=== PATIENT | female | born 1975 | race Caucasian/White ===

== ENCOUNTER → 2019-01-23 11:06 | Outpatient (CLI) | payer MEDICAID, SELFPAY ==
[2019-01-24 14:51] LABS: Amphetamine/Metha Screen,Urine Negative ng/mL (<1000); Barbiturates Screen,Urine Negative ng/mL (<200); Benzodiazepines Screen,Urine Negative ng/mL (<200); Cannabinoid Screen,Urine Positive ng/mL (<50); Cocaine Screen,Urine Negative ng/mL (<300); Methadone Screen,Urine Negative ng/mL (<300); Opiate Screen,Urine Negative ng/mL (<300); Phencyclidine Screen,Urine Negative ng/mL (<25)
[2019-01-31 15:11] LABS: Alprazolam Negative (Cutoff=100); Benzodiazepines Negative ng/mL (Cutoff=100); Clonazepam Negative (Cutoff=100); Flurazepam Negative (Cutoff=100); Lorazepam Negative (Cutoff=100); Midazolam Negative (Cutoff=100); Temazepam Negative (Cutoff=100); Triazolam Negative (Cutoff=100)
== END ==
PROVIDERS: Visit Provider Emergency Medicine
DX: Z79.899 Other long term (current) drug therapy (principal); F41.9 Anxiety disorder, unspecified
CPT/HCPCS: 80305; 80346

== ENCOUNTER → 2019-09-13 14:36 | Outpatient (CLI) | payer MEDICAID, SELFPAY ==
[2019-09-13 15:51] LABS: Amphetamine/Metha Screen,Urine Negative ng/ml (<1000)
[2019-09-13 15:52] LABS: Barbiturates Screen,Urine Negative ng/ml (<200); Benzodiazepines Screen,Urine Negative ng/ml (<200)
[2019-09-13 15:53] LABS: Cannabinoid Screen,Urine Negative ng/ml (<50)
[2019-09-13 15:54] LABS: Cocaine Screen,Urine Negative ng/ml (<300); Methadone Screen,Urine Negative ng/ml (<300)
[2019-09-13 15:55] LABS: Opiate Screen,Urine Negative ng/ml (<300); Phencyclidine Screen,Urine Negative ng/ml (<25)
[2019-09-21 10:28] LABS: Alprazolam Negative (Cutoff=100); Benzodiazepines Negative ng/mL (Cutoff=100); Clonazepam Negative (Cutoff=100); Flurazepam Negative (Cutoff=100); Lorazepam Negative (Cutoff=100); Midazolam Negative (Cutoff=100); Temazepam Negative (Cutoff=100); Triazolam Negative (Cutoff=100)
[2019-09-21 12:34] LABS: Opiates Negative (Cutoff=100)
== END ==
PROVIDERS: Visit Provider Emergency Medicine
DX: Z79.899 Other long term (current) drug therapy (principal)
CPT/HCPCS: 80305; 80346; 80361; 80365; G0480

== ENCOUNTER → 2020-01-03 16:49 | Outpatient (CLI) | payer MEDICAID, SELFPAY ==
[2020-01-03 17:46] LABS: Chloride 105 mmol/L (98-107)
[2020-01-03 17:47] LABS: Potassium 4.5 mmoL/L (3.5-5.1); Sodium 137 mmol/L (136-145)
[2020-01-03 17:49] LABS: Alanine Aminotransferase 14 U/L (12-78); Albumin Level 4.2 g/dl (3.5-5.0); Albumin/Globulin Ratio 1.4 (1.1-1.8); Alkaline Phosphatase 49 U/L (38-126); Anion Gap 10.5 mEq/L (5-15); Aspartate Amino Transferase 22 U/L (14-36); Bilirubin,Total 0.4 mg/dl (0.2-1.3); Blood Urea Nitrogen 12 mg/dl (7-17); Carbon Dioxide 26 mmol/L (22.0-30.0); Cholesterol 148 mg/dl (140-200); Estimated Glomerular Filt Rate 109 ml/min (>60); GFR (African American) 132 ML/MIN (>60); Globulin 2.9 g/dL (1.3-3.2); Total Protein,Serum 7.1 g/dl (6.3-8.2); Triglycerides 154 mg/dl (30-150); VLDL Cholesterol 31 mg/dL (0-40)
[2020-01-03 17:50] LABS: Calcium 9.3 mg/dl (8.4-10.2); Chol/HDL Ratio 2.7 (1-3.5); Glucose 109 mg/dl (74-100); HDL Cholesterol 55 mg/dl (40-60)
[2020-01-03 17:51] LABS: Basophils % 0.4 % (0.1-2.0); Eosinophils # 0.7 K/mm3 (0.0-0.4); Eosinophils % 7.8 % (0.1-12.0); Hematocrit 44.8 % (37.0-47.0); Hemoglobin 14.7 g/dL (12.2-16.2); Lymphocytes # 2.9 K/mm3 (0.7-4.5); Lymphocytes % 31.8 % (10-50); Mean Corpuscular HGB Conc 32.9 g/dL (31.8-35.4); Mean Corpuscular Hemoglobin 32.7 pg (27.0-31.2); Mean Corpuscular Volume 99.3 fl (81-99); Mean Platelet Volume 10.3 fl (7.4-10.4); Monocytes # 0.3 K/mm3 (0.1-1.0); Monocytes % 3.5 % (1.7-9.3); Neutrophils # 5.1 K/mm3 (1.8-7.8); Neutrophils % 56.5 % (37.0-80.0); Platelet Count 265 K/mm3 (142-424); Red Blood Count 4.52 M/mm3 (4.20-5.40); Red Cell Distribution Width 14.4 % (11.5-17.5)
[2020-01-03 18:02] LABS: Direct LDL Cholesterol 57.83 mg/dL (100-129)
[2020-01-03 18:20] LABS: Thyroid Stimulating Hormone 1.07 uIU/mL (0.465-4.68)
[2020-01-05 11:18] LABS: Vitamin D 25 Hydroxy 37.7 ng/mL (30.0-100.0)
== END ==
PROVIDERS: Visit Provider Emergency Medicine
DX: M51.36 Other intervertebral disc degeneration, lumbar region (principal); Z79.899 Other long term (current) drug therapy
CPT/HCPCS: 80053; 80061; 82652; 84436; 84443; 85025

== ENCOUNTER → 2020-04-03 15:00 | Outpatient (CLI) | payer MEDICAID, SELFPAY ==
--- NOTE | 2020-04-03 15:01 | MR_ITS ---
PROCEDURE: MR LUMBAR SPINE WO CON CLINICAL INDICATION: back pain PT. C/O LEFT LEG PAIN NUMBNESS AND TINGLING X 4 MONTHS. 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 3-D MIP and myelographic images are also rendered and reviewed FINDINGS: The spinal cord ends at the L1 level. L1-L2 and L2-L3 have an unremarkable appearance. L3-L4: Degenerate disc disease with 7 mm anterolisthesis of L3. Bilateral pars defect is present at L3. There is decreased T1 and increased T2 signal involving the mid lower aspect of L3 vertebral body in the mid upper aspect of the L4 vertebral body centrally and on the left. Bulging disc is present at L3-L4 is slightly eccentric toward the left. There is severe left-sided foraminal narrowing which is increased compared to the previous exam and mild right foraminal narrowing. There is impingement upon the exiting L3 nerve root from the severe foraminal narrowing L4-5: Degenerative disc disease with bulging disc with moderate to severe right foraminal narrowing and mild left foraminal narrowing. The disc is eccentric toward the right and there is facet and ligamentum hypertrophy. L5-S1: Mild concentric bulging disc. No extruded herniated disc or bony canal stenosis. IMPRESSION: 1. Degenerative disc disease at L3-L4 with 7 mm anterolisthesis of L3. Bilateral pars defect is present at L3. There is bone marrow edema involving the mid lower aspect of L3 in the mid upper aspect of L4 centrally and on the left. This has developed since the previous exam. Bulging disc is present at L3-L4 is slightly eccentric toward the left. There is severe left-sided foraminal narrowing which is increased compared to the previous exam and mild right foraminal narrowing. There is impingement upon the exiting L3 nerve root from the severe foraminal narrowing on the left. This has increased since the previous exam 2. L4-5: Degenerative disc disease with bulging disc with moderate to severe right foraminal narrowing and mild left foraminal narrowing. The disc is eccentric toward the right and there is facet and ligamentum hypertrophy. Item no extruded herniated disc evident. Dictated by: Jean Pierre Duarte MD 04/04/2020 14:12 Jean Pierre Duaret MD in [facility] 04/04/2020 14:12
== END ==
PROVIDERS: PCP Emergency Medicine; Visit Provider Emergency Medicine
DX: M51.36 Other intervertebral disc degeneration, lumbar region (principal)
CPT/HCPCS: 72148; 76376

== ENCOUNTER → 2020-09-20 15:27 | Outpatient (CLI) | payer MEDICAID, SELFPAY ==
[2020-09-20 18:44] LABS: Barbiturates Screen,Urine Negative ng/ml (<200)
[2020-09-20 18:45] LABS: Amphetamine/Metha Screen,Urine Negative ng/ml (<1000); Benzodiazepines Screen,Urine Negative ng/ml (<200)
[2020-09-20 18:46] LABS: Methadone Screen,Urine Negative ng/ml (<300)
[2020-09-20 18:47] LABS: Cannabinoid Screen,Urine Positive ng/ml (<50); Cocaine Screen,Urine Negative ng/ml (<300)
[2020-09-20 18:48] LABS: Opiate Screen,Urine Negative ng/ml (<300)
[2020-09-20 18:49] LABS: Phencyclidine Screen,Urine Negative ng/ml (<25)
== END ==
PROVIDERS: Visit Provider Emergency Medicine
DX: Z79.899 Other long term (current) drug therapy (principal)
CPT/HCPCS: 80305

== ENCOUNTER → 2020-10-25 13:59 | Outpatient (CLI) | payer MEDICAID, SELFPAY ==
[2020-10-25 14:51] LABS: Barbiturates Screen,Urine Negative ng/ml (<200)
[2020-10-25 14:52] LABS: Amphetamine/Metha Screen,Urine Negative ng/ml (<1000); Benzodiazepines Screen,Urine Negative ng/ml (<200)
[2020-10-25 14:53] LABS: Methadone Screen,Urine Negative ng/ml (<300)
[2020-10-25 14:54] LABS: Cannabinoid Screen,Urine Positive ng/ml (<50); Cocaine Screen,Urine Negative ng/ml (<300)
[2020-10-25 14:55] LABS: Opiate Screen,Urine Negative ng/ml (<300)
[2020-10-25 14:56] LABS: Phencyclidine Screen,Urine Negative ng/ml (<25)
== END ==
PROVIDERS: Visit Provider Emergency Medicine
DX: M51.36 Other intervertebral disc degeneration, lumbar region (principal)
CPT/HCPCS: 80305

== ENCOUNTER → 2020-12-25 14:54 | Outpatient (CLI) | payer MEDICAID, SELFPAY ==
[2020-12-25 16:54] LABS: Amphetamine/Metha Screen,Urine Negative ng/ml (<1000); Barbiturates Screen,Urine Negative ng/ml (<200); Benzodiazepines Screen,Urine Negative ng/ml (<200); Cannabinoid Screen,Urine Positive ng/ml (<50); Cocaine Screen,Urine Negative ng/ml (<300); Methadone Screen,Urine Negative ng/ml (<300); Opiate Screen,Urine Negative ng/ml (<300)
[2020-12-25 17:01] LABS: Phencyclidine Screen,Urine Negative ng/ml (<25)
== END ==
PROVIDERS: Visit Provider Emergency Medicine
DX: Z79.899 Other long term (current) drug therapy (principal)
CPT/HCPCS: 80305

== ENCOUNTER → 2021-02-17 13:50 | Outpatient (CLI) | payer MEDICAID, SELFPAY ==
[2021-02-17 15:01] LABS: Cannabinoid Screen,Urine Positive ng/ml (<50); Cocaine Screen,Urine Negative ng/ml (<300)
[2021-02-17 15:02] LABS: Methadone Screen,Urine Negative ng/ml (<300); Opiate Screen,Urine Negative ng/ml (<300)
[2021-02-17 15:03] LABS: Phencyclidine Screen,Urine Negative ng/ml (<25)
[2021-02-17 16:36] LABS: Barbiturates Screen,Urine Negative ng/ml (<200)
[2021-02-17 16:38] LABS: Amphetamine/Metha Screen,Urine Negative ng/ml (<1000)
[2021-02-17 16:47] LABS: Benzodiazepines Screen,Urine Negative ng/ml (<200)
== END ==
PROVIDERS: Visit Provider Emergency Medicine
DX: M19.90 Unspecified osteoarthritis, unspecified site (principal)
CPT/HCPCS: 80305

== ENCOUNTER → 2021-04-14 14:02 | Outpatient (CLI) | payer MEDICAID, SELFPAY ==
[2021-04-14 15:32] LABS: Amphetamine/Metha Screen,Urine Negative ng/ml (<1000); Barbiturates Screen,Urine Negative ng/ml (<200)
[2021-04-14 15:33] LABS: Benzodiazepines Screen,Urine Negative ng/ml (<200); Cannabinoid Screen,Urine Positive ng/ml (<50)
[2021-04-14 15:34] LABS: Cocaine Screen,Urine Negative ng/ml (<300)
[2021-04-14 15:35] LABS: Methadone Screen,Urine Negative ng/ml (<300)
[2021-04-14 15:37] LABS: Opiate Screen,Urine Negative ng/ml (<300); Phencyclidine Screen,Urine Negative ng/ml (<25)
== END ==
PROVIDERS: Visit Provider Emergency Medicine
DX: Z79.899 Other long term (current) drug therapy (principal)
CPT/HCPCS: 80305

== ENCOUNTER → 2021-08-06 13:39 | Outpatient (CLI) | payer MEDICAID, SELFPAY ==
[2021-08-06 14:49] LABS: Amphetamine/Metha Screen,Urine Negative ng/ml (<1000)
[2021-08-06 14:50] LABS: Barbiturates Screen,Urine Negative ng/ml (<200)
[2021-08-06 14:51] LABS: Benzodiazepines Screen,Urine Negative ng/ml (<200); Cannabinoid Screen,Urine Positive ng/ml (<50)
[2021-08-06 14:52] LABS: Cocaine Screen,Urine Negative ng/ml (<300)
[2021-08-06 14:53] LABS: Methadone Screen,Urine Negative ng/ml (<300); Opiate Screen,Urine Negative ng/ml (<300)
[2021-08-06 14:54] LABS: Phencyclidine Screen,Urine Negative ng/ml (<25)
== END ==
PROVIDERS: Visit Provider Emergency Medicine
DX: F41.9 Anxiety disorder, unspecified (principal)
CPT/HCPCS: 80305

== ENCOUNTER → 2021-10-01 15:45 | Outpatient (CLI) | payer MEDICAID, SELFPAY ==
[2021-10-01 14:20] LABS: Barbiturates Screen,Urine Negative ng/ml (<200); Benzodiazepines Screen,Urine Negative ng/ml (<200)
[2021-10-01 14:21] LABS: Amphetamine/Metha Screen,Urine Negative ng/ml (<1000)
[2021-10-01 14:22] LABS: Cannabinoid Screen,Urine Positive ng/ml (<50); Methadone Screen,Urine Negative ng/ml (<300)
[2021-10-01 14:23] LABS: Cocaine Screen,Urine Negative ng/ml (<300)
[2021-10-01 14:24] LABS: Opiate Screen,Urine Positive ng/ml (<300)
[2021-10-01 14:25] LABS: Phencyclidine Screen,Urine Negative ng/ml (<25)
== END ==
PROVIDERS: Visit Provider Emergency Medicine
DX: Z79.899 Other long term (current) drug therapy (principal)
CPT/HCPCS: 80305

== ENCOUNTER → 2021-11-28 10:25 | Outpatient (CLI) | payer MEDICAID, SELFPAY ==
[2021-11-28 18:07] LABS: Amphetamine/Metha Screen,Urine Negative ng/ml (<1000); Barbiturates Screen,Urine Negative ng/ml (<200)
[2021-11-28 18:08] LABS: Benzodiazepines Screen,Urine Negative ng/ml (<200)
[2021-11-28 18:09] LABS: Cannabinoid Screen,Urine Positive ng/ml (<50); Cocaine Screen,Urine Negative ng/ml (<300)
[2021-11-28 18:10] LABS: Methadone Screen,Urine Negative ng/ml (<300)
[2021-11-28 18:11] LABS: Opiate Screen,Urine Negative ng/ml (<300); Phencyclidine Screen,Urine Negative ng/ml (<25)
== END ==
PROVIDERS: PCP Emergency Medicine; Visit Provider Emergency Medicine
DX: Z79.899 Other long term (current) drug therapy (principal)
CPT/HCPCS: 80305

== ENCOUNTER → 2021-12-30 13:48 | Outpatient (CLI) | payer MEDICAID, SELFPAY ==
--- NOTE | 2021-12-30 13:55 | MM_ITS ---
PROCEDURE INFORMATION: Exam: Bilateral Screening 3D Mammography Exam date and time: 12/30/2021 1:54 PM Age: 46 years old Clinical indication: Screening examination TECHNIQUE: Imaging protocol: Bilateral Screening tomosynthesis and 2D mammography including computer-aided detection (CAD) when performed. COMPARISON: No relevant prior studies available. FINDINGS: MAMMOGRAPHY: Breast composition: The breasts are heterogeneously dense, which may obscure small masses. Mass: None. Architectural distortion: None. Calcifications: No suspicious calcifications. Asymmetric density: None. Skin thickening: None. Axillary adenopathy: None. IMPRESSION: No mammographic evidence of malignancy. Annual screening is recommended unless otherwise clinically indicated. ASSESSMENT: BI-RADS Category 1: Negative
== END ==
PROVIDERS: PCP Emergency Medicine; Visit Provider Emergency Medicine
DX: Z12.31 Encounter for screening mammogram for malignant neoplasm of breast (principal)
CPT/HCPCS: 77063; 77067

== ENCOUNTER → 2022-01-27 15:02 | Outpatient (CLI) | payer MEDICAID, SELFPAY ==
[2022-01-27 15:43] LABS: Amphetamine/Metha Screen,Urine Negative ng/ml (<1000)
[2022-01-27 15:47] LABS: Phencyclidine Screen,Urine Negative ng/ml (<25)
[2022-01-27 15:50] LABS: Barbiturates Screen,Urine Negative ng/ml (<200)
[2022-01-27 15:51] LABS: Benzodiazepines Screen,Urine Negative ng/ml (<200)
[2022-01-27 15:52] LABS: Cannabinoid Screen,Urine Negative ng/ml (<50)
[2022-01-27 15:53] LABS: Cocaine Screen,Urine Negative ng/ml (<300)
[2022-01-27 15:54] LABS: Methadone Screen,Urine Negative ng/ml (<300); Opiate Screen,Urine Negative ng/ml (<300)
== END ==
PROVIDERS: PCP Emergency Medicine; Visit Provider Emergency Medicine
DX: Z79.899 Other long term (current) drug therapy (principal)
CPT/HCPCS: 80305

== ENCOUNTER → 2022-03-27 18:30 | Outpatient (CLI) | payer MEDICAID, SELFPAY ==
[2022-03-27 18:42] LABS: Amphetamine/Metha Screen,Urine Negative ng/ml (<1000)
[2022-03-27 18:43] LABS: Barbiturates Screen,Urine Negative ng/ml (<200); Benzodiazepines Screen,Urine Negative ng/ml (<200)
[2022-03-27 18:44] LABS: Cannabinoid Screen,Urine Negative ng/ml (<50)
[2022-03-27 18:45] LABS: Cocaine Screen,Urine Negative ng/ml (<300); Methadone Screen,Urine Negative ng/ml (<300)
[2022-03-27 18:46] LABS: Opiate Screen,Urine Negative ng/ml (<300)
[2022-03-27 18:47] LABS: Phencyclidine Screen,Urine Negative ng/ml (<25)
== END ==
PROVIDERS: PCP Emergency Medicine; Visit Provider Emergency Medicine
DX: Z79.899 Other long term (current) drug therapy (principal)
CPT/HCPCS: 80305

== ENCOUNTER → 2022-04-27 16:24 | Outpatient (CLI) | payer MEDICAID, SELFPAY ==
[2022-04-27 16:18] LABS: Amphetamine/Metha Screen,Urine Negative ng/ml (<1000); Barbiturates Screen,Urine Negative ng/ml (<200)
[2022-04-27 16:19] LABS: Benzodiazepines Screen,Urine Negative ng/ml (<200)
[2022-04-27 16:20] LABS: Cannabinoid Screen,Urine Negative ng/ml (<50); Cocaine Screen,Urine Negative ng/ml (<300)
[2022-04-27 16:21] LABS: Methadone Screen,Urine Negative ng/ml (<300)
[2022-04-27 16:22] LABS: Opiate Screen,Urine Negative ng/ml (<300); Phencyclidine Screen,Urine Negative ng/ml (<25)
== END ==
PROVIDERS: PCP Emergency Medicine; Visit Provider Emergency Medicine
DX: Z79.899 Other long term (current) drug therapy (principal)
CPT/HCPCS: 80305

== ENCOUNTER → 2022-06-24 14:49 | Outpatient (CLI) | payer MEDICAID, SELFPAY ==
[2022-06-24 16:06] LABS: Amphetamine/Metha Screen,Urine Negative ng/ml (<1000); Barbiturates Screen,Urine Negative ng/ml (<200)
[2022-06-24 16:07] LABS: Benzodiazepines Screen,Urine Negative ng/ml (<200)
[2022-06-24 16:08] LABS: Cannabinoid Screen,Urine Negative ng/ml (<50); Cocaine Screen,Urine Negative ng/ml (<300)
[2022-06-24 16:09] LABS: Methadone Screen,Urine Negative ng/ml (<300)
[2022-06-24 16:10] LABS: Opiate Screen,Urine Negative ng/ml (<300); Phencyclidine Screen,Urine Negative ng/ml (<25)
== END ==
PROVIDERS: PCP Emergency Medicine; Visit Provider Emergency Medicine
DX: Z79.899 Other long term (current) drug therapy (principal)
CPT/HCPCS: 80305

== ENCOUNTER → 2022-08-21 15:25 | Outpatient (CLI) | payer MEDICAID, SELFPAY ==
[2022-08-21 15:51] LABS: Amphetamine/Metha Screen,Urine Negative ng/ml (<1000); Barbiturates Screen,Urine Negative ng/ml (<200)
[2022-08-21 15:53] LABS: Benzodiazepines Screen,Urine Negative ng/ml (<200); Cannabinoid Screen,Urine Positive ng/ml (<50)
[2022-08-21 15:54] LABS: Cocaine Screen,Urine Negative ng/ml (<300)
[2022-08-21 15:55] LABS: Methadone Screen,Urine Negative ng/ml (<300)
[2022-08-21 15:56] LABS: Opiate Screen,Urine Negative ng/ml (<300)
[2022-08-21 15:57] LABS: Phencyclidine Screen,Urine Negative ng/ml (<25)
== END ==
PROVIDERS: PCP Emergency Medicine; Visit Provider Emergency Medicine
DX: Z79.899 Other long term (current) drug therapy (principal)
CPT/HCPCS: 80305

== ENCOUNTER → 2022-10-18 12:36 | Outpatient (CLI) | payer MEDICAID, SELFPAY ==
[2022-10-18 14:09] LABS: Basophils # 0.1 K/mm3 (0-0.2); Basophils % 0.7 % (0.1-2.0); Eosinophils # 0.1 K/mm3 (0.0-0.4); Eosinophils % 1.6 % (0.1-12.0); Hematocrit 46.3 % (37.0-47.0); Hemoglobin 14.3 g/dL (12.2-16.2); Lymphocytes # 1.6 K/mm3 (0.7-4.5); Lymphocytes % 25.1 % (10-50); Mean Corpuscular HGB Conc 30.9 g/dL (31.8-35.4); Mean Corpuscular Hemoglobin 30.1 pg (27.0-31.2); Mean Corpuscular Volume 97.4 fl (81-99); Mean Platelet Volume 8.2 fl (7.4-10.4); Monocytes # 0.3 K/mm3 (0.1-1.0); Monocytes % 4.6 % (1.7-9.3); Neutrophils # 4.4 K/mm3 (1.8-7.8); Platelet Count 303 K/mm3 (142-424); Red Blood Count 4.75 M/mm3 (4.20-5.40); Red Cell Distribution Width 14.1 % (11.5-17.5); White Blood Count 6.5 K/mm3 (4.8-10.8)
[2022-10-18 14:15] LABS: Alanine Aminotransferase 28 U/L (12-78); Albumin Level 4.3 g/dl (3.5-5.0); Albumin/Globulin Ratio 1.7 (1.1-1.8); Alkaline Phosphatase 72 U/L (38-126); Aspartate Amino Transferase 25 U/L (14-36); Bilirubin,Total 0.3 mg/dl (0.2-1.3); Blood Urea Nitrogen 12 mg/dl (7-17); Calcium 8.8 mg/dl (8.4-10.2); Carbon Dioxide 29 mmol/L (22.0-30.0); Chloride 102 mmol/L (98-107); Chol/HDL Ratio 3.2 (1-3.5); Cholesterol 173 mg/dl (140-200); Estimated Glomerular Filt Rate 108 ml/min (>60); GFR (African American) 130 ML/MIN (>60); Globulin 2.6 g/dL (1.3-3.2); Glucose 88 mg/dl (74-100); HDL Cholesterol 54 mg/dl (40-60); Sodium 137 mmol/L (136-145); Total Protein,Serum 6.9 g/dl (6.3-8.2); Triglycerides 100 mg/dl (30-150); VLDL Cholesterol 20 mg/dL (0-40)
[2022-10-18 14:26] LABS: Direct LDL Cholesterol 72.01 mg/dL (100-129)
[2022-10-18 14:31] LABS: Free T4 (Free Thyroxine) 0.93 ng/dl (0.78-2.19)
[2022-10-18 14:32] LABS: 25-OH Vitamin D, Total 22.6 ng/mL (30-100)
== END ==
PROVIDERS: PCP Emergency Medicine; Visit Provider Emergency Medicine
DX: R53.83 Other fatigue (principal); E03.9 Hypothyroidism, unspecified; K59.00 Constipation, unspecified; E55.9 Vitamin D deficiency, unspecified
CPT/HCPCS: 36415; 80053; 80061; 82306; 84439; 84443; 85025

== ENCOUNTER → 2022-12-18 19:14 | Outpatient (CLI) | payer MEDICAID, SELFPAY ==
[2022-12-18 20:59] LABS: Amphetamine/Metha Screen,Urine Negative ng/ml (<1000); Barbiturates Screen,Urine Negative ng/ml (<200)
[2022-12-18 21:00] LABS: Benzodiazepines Screen,Urine Negative ng/ml (<200)
[2022-12-18 21:01] LABS: Cannabinoid Screen,Urine Negative ng/ml (<50)
[2022-12-18 21:02] LABS: Cocaine Screen,Urine Negative ng/ml (<300)
[2022-12-18 21:03] LABS: Methadone Screen,Urine Negative ng/ml (<300)
[2022-12-18 21:04] LABS: Opiate Screen,Urine Negative ng/ml (<300); Phencyclidine Screen,Urine Negative ng/ml (<25)
== END ==
PROVIDERS: PCP Emergency Medicine; Visit Provider Emergency Medicine
DX: Z79.899 Other long term (current) drug therapy (principal)
CPT/HCPCS: 80305

== ENCOUNTER → 2023-04-13 22:49 | Outpatient (CLI) | payer MEDICAID, SELFPAY ==
[2023-04-13 17:43] LABS: Amphetamine/Metha Screen,Urine Negative ng/ml (<1000)
[2023-04-13 17:44] LABS: Barbiturates Screen,Urine Negative ng/ml (<200); Benzodiazepines Screen,Urine Negative ng/ml (<200)
[2023-04-13 17:46] LABS: Cannabinoid Screen,Urine Negative ng/ml (<50); Cocaine Screen,Urine Negative ng/ml (<300)
[2023-04-13 17:47] LABS: Methadone Screen,Urine Negative ng/ml (<300); Opiate Screen,Urine Positive ng/ml (<300)
[2023-04-13 17:48] LABS: Phencyclidine Screen,Urine Negative ng/ml (<25)
== END ==
PROVIDERS: PCP Emergency Medicine; Visit Provider Emergency Medicine
DX: M48.061 Spinal stenosis, lumbar region without neurogenic claudication (principal)
CPT/HCPCS: 80305

== ENCOUNTER → 2023-06-11 12:00 | Outpatient (CLI) | payer MEDICAID, SELFPAY ==
[2023-06-11 20:28] LABS: Amphetamine/Metha Screen,Urine Negative ng/ml (<1000)
[2023-06-11 20:29] LABS: Barbiturates Screen,Urine Negative ng/ml (<200)
[2023-06-11 20:30] LABS: Benzodiazepines Screen,Urine Negative ng/ml (<200)
[2023-06-11 20:31] LABS: Cannabinoid Screen,Urine Negative ng/ml (<50); Cocaine Screen,Urine Negative ng/ml (<300)
[2023-06-11 20:34] LABS: Methadone Screen,Urine Negative ng/ml (<300); Opiate Screen,Urine Positive ng/ml (<300)
[2023-06-11 20:35] LABS: Phencyclidine Screen,Urine Negative ng/ml (<25)
== END ==
PROVIDERS: PCP Emergency Medicine; Visit Provider Emergency Medicine
DX: Z79.899 Other long term (current) drug therapy (principal)
CPT/HCPCS: 80305

== ENCOUNTER 2023-10-14 18:58 | Outpatient (CLI) | payer MEDICAID, SELFPAY ==
[2023-10-14 18:56] LABS: Basophils # 0.1 K/mm3 (0-0.2); Basophils % 1.2 % (0.1-2.0); Eosinophils # 0.1 K/mm3 (0.0-0.4); Hematocrit 45.7 % (37.0-47.0); Hemoglobin 14.2 g/dL (12.2-16.2); Lymphocytes # 2.7 K/mm3 (0.7-4.5); Lymphocytes % 36.7 % (10-50); Mean Corpuscular HGB Conc 31.2 g/dL (31.8-35.4); Mean Corpuscular Hemoglobin 30.7 pg (27.0-31.2); Mean Corpuscular Volume 98.3 fl (81-99); Mean Platelet Volume 10.8 fl (7.4-10.4); Monocytes # 0.4 K/mm3 (0.1-1.0); Monocytes % 4.9 % (1.7-9.3); Neutrophils # 4.2 K/mm3 (1.8-7.8); Neutrophils % 56.2 % (37.0-80.0); Platelet Count 348 K/mm3 (142-424); Red Blood Count 4.64 M/mm3 (4.20-5.40); Red Cell Distribution Width 14.5 % (11.5-17.5); White Blood Count 7.4 K/mm3 (4.8-10.8)
[2023-10-14 19:35] LABS: Alanine Aminotransferase 57 U/L (12-78); Albumin Level 4.1 g/dl (3.5-5.0); Albumin/Globulin Ratio 1.3 (1.1-1.8); Alkaline Phosphatase 149 U/L (38-126); Anion Gap 12.8 mEq/L (5-15); Aspartate Amino Transferase 83 U/L (14-36); Bilirubin,Total 0.3 mg/dl (0.2-1.3); Blood Urea Nitrogen 13 mg/dl (7-17); Calcium 9.3 mg/dl (8.4-10.2); Carbon Dioxide 25 mmol/L (22.0-30.0); Chloride 106 mmol/L (98-107); Chol/HDL Ratio 5.1 (1-3.5); Cholesterol 173 mg/dl (140-200); Estimated Glomerular Filt Rate 90 ml/min (>60); GFR (African American) 109 ML/MIN (>60); Globulin 3.1 g/dL (1.3-3.2); Glucose 87 mg/dl (74-100); HDL Cholesterol 34 mg/dl (40-60); Potassium 4.8 mmoL/L (3.5-5.1); Sodium 139 mmol/L (136-145); Total Protein,Serum 7.2 g/dl (6.3-8.2); Triglycerides 239 mg/dl (30-150); VLDL Cholesterol 48 mg/dL (0-40)
[2023-10-14 19:48] LABS: Direct LDL Cholesterol 53.87 mg/dL (100-129)
[2023-10-14 19:52] LABS: 25-OH Vitamin D, Total 28.3 ng/mL (30-100)
== END 2023-10-14 23:59 ==
LOC: LAB.DROPOF 18:58
PROVIDERS: PCP Internal Medicine; Visit Provider Internal Medicine
DX: M48.061 Spinal stenosis, lumbar region without neurogenic claudication (principal); E55.9 Vitamin D deficiency, unspecified; R53.83 Other fatigue; Z68.25 Body mass index [BMI] 25.0-25.9, adult
CPT/HCPCS: 80053; 80061; 82306; 85025